=== PATIENT | male | born 1945 | race Caucasian/White ===

== ENCOUNTER 2017-12-29 07:24 | Day surgery (SDC) | payer MEDICARE ==
[~2017-12-29] VITALS: Ht 170.2 cm; Wt 68.0 kg
[~2017-12-29 07:24] MED LIST: AMLODIPINE5 MG PO; DUREZOL0.05 % OS; TAMSULOSIN HCL0.4 MG PO; XALATAN 0.005%2.5 ML OS
[2017-12-29 11:17] VITALS: BP 1428/84
== END 2017-12-29 10:15 | disposition home or self-care (01) ==
LOC: ENDO 07:24
PROVIDERS: ATTEND Surgery
PROC: 0DJD8ZZ Inspection of Lower Intestinal Tract, Via Natural or Artificial Opening Endoscopic (ICD-10-PCS; principal; 2017-12-29)
DX: Z12.11 Encounter for screening for malignant neoplasm of colon (principal); K64.4 Residual hemorrhoidal skin tags; K57.30 Diverticulosis of large intestine without perforation or abscess without bleeding
CPT/HCPCS: G0121